=== PATIENT | female | born 1995 | race Asian ===

== ENCOUNTER 2021-06-23 03:36 | Emergency (ER) | payer OTHER ==
[~2021-06-23] VITALS: Ht 160 cm; Wt 78.7 kg
--- NOTE | 2021-06-23 03:51 | NUR ---
THIS IS A 26F THAT COMES IN WITH COMPLAINT OF L FLANK PAIN WITH NAUSEA AND VOMITING X A FEW HOURS. PT STS SHE THINKS SHE ATE SOMETHING BAD AT [facility] [employer]. VSS, RESP EVEN PT C/O 06/16 PAIN AT THIS TIME AT BEDSIDE FOR COMFORT
--- NOTE | 2021-06-23 03:53 | NUR ---
PT EDUCATED ON NEED FOR URINE SAMPLE STS WILL PROVIDE ONE SOON
[2021-06-23] MEDS ORDERED: ONDANSETRON 2MG/ML, 2ML ONE (04:08)
[2021-06-23] MEDS ORDERED: MORPHINE SULFATE 4 MG/ML, 1ML ONE (04:14)
[2021-06-23] MEDS ORDERED: MORPHINE SULFATE 4 MG/ML, 1ML IVPush PRN (04:30)
[2021-06-23] MEDS ORDERED: SODIUM CHLORIDE 0.9% 1,000ML IV ONE (05:00)
[2021-06-23] MEDS ORDERED: ONDANSETRON 2MG/ML, 2ML IVPush ONE (05:00)
--- NOTE | 2021-06-23 05:05 | NUR ---
PT SITING UPRIGHT ON GURNEY, RESTING COMFORTABLY WITH EYES CLOSED. PT STATES SHE IS UNABLE TO PROVIDE A URINE SAMPLE AT THIS TIME. ERP AWARE. PAIN IMPROVED. PT DENIES ANY ADDITIONAL NEEDS AT THIS TIME. CALL LIG AND PERSONAL BELONGINGS WITHIN REACH. FATHER AT BEDSIDE
[2021-06-23 05:18] LABS: BASOPHILS % (AUTO) 1 % (0-1); EOSINOPHILS % (AUTO) 1 % (1-7); LYMPHOCYTES % (AUTO) 15 % (22-44); MEAN CORPUSCULAR HGB CONC 34.9 g/dL (32.4-35.8); MEAN PLATELET VOLUME 8.8 fL (7.4-10.4); MONOCYTES % (AUTO) 5 % (2-9); NEUTROPHILS % (AUTO) 79 % (42-75); PLATELET COUNT 309 x10^3/uL (130-400); RED BLOOD COUNT 4.92 x10^6/uL (3.82-5.3); RED CELL DISTRIBUTION WIDTH 11.6 % (9.6-15.2)
[2021-06-23 05:28] LABS: ANION GAP 9 mmol/L (5-15); CALCIUM 8.9 mg/dL (8.5-10.1); CHLORIDE 104 mmol/L (98-107); CREATININE 1.19 mg/dL (0.55-1.02)
[2021-06-23 06:15] LABS: MICROSCOPIC AUTO
[2021-06-23] MEDS ORDERED: KETOROLAC 30 MG/1 ML ONE (06:28)
[2021-06-23] MEDS ORDERED: KETOROLAC 30 MG/1 ML IVPush ONE (07:00)
--- NOTE | 2021-06-23 07:05 | NUR ---
REPORT TO OTONIEL GARCIA
[2021-06-23 10:26] VITALS: BP 103/68
--- NOTE | 2021-06-23 10:27 | NUR ---
PT REC'VD DISCHARGE INSTRUCTIONS AND EDUCATION. PT HAD NO FURTHER QUESTIONS. PT, WITH FATHER BESIDE, AMBULATED TO DC AREA, STEADY GAIT.
== END 2021-06-23 10:41 | disposition home or self-care (01) ==
LOC: ED 05:02
DX: N13.2 Hydronephrosis with renal and ureteral calculous obstruction (principal); J45.909 Unspecified asthma, uncomplicated
CPT/HCPCS: 36415; 74176; 80048; 81001; 82040; 84703; 85025; 87086; 96361; 96374; 96375; 99285; J1885; J2270; J2405; J7030